=== PATIENT | male | born 1955 | race Caucasian/White ===

== ENCOUNTER → 2020-07-10 08:59 | Outpatient (BNVA) | payer MEDICARE, BC, SELFPAY | PROVIDERS: Visit Provider Urology | DX: Z13.89 Encounter for screening for other disorder (principal) | CPT/HCPCS: Q3014 ==

== ENCOUNTER → 2021-01-08 08:19 | Outpatient (BNVA) | payer MEDICARE, BC, SELFPAY | PROVIDERS: Visit Provider Urology | CPT/HCPCS: Q3014 ==

== ENCOUNTER → 2021-07-08 11:28 | Outpatient (BNVA) | payer MEDICARE, BC, SELFPAY | PROVIDERS: Visit Provider Urology | DX: R97.20 Elevated prostate specific antigen [PSA] (principal); N40.1 Benign prostatic hyperplasia with lower urinary tract symptoms; N13.8 Other obstructive and reflux uropathy; N52.9 Male erectile dysfunction, unspecified | CPT/HCPCS: 51798; 99212 ==

== ENCOUNTER → 2021-12-30 10:46 | Outpatient (BNVA) | payer MEDICARE, BC, SELFPAY | PROVIDERS: PCP Family Medicine; Visit Provider Urology | DX: N40.1 Benign prostatic hyperplasia with lower urinary tract symptoms (principal); N13.8 Other obstructive and reflux uropathy; N52.9 Male erectile dysfunction, unspecified; R97.20 Elevated prostate specific antigen [PSA] | CPT/HCPCS: 51798; 99212 ==

== ENCOUNTER → 2022-07-19 15:37 | Outpatient (BNVA) | payer MEDICARE, BC, SELFPAY | PROVIDERS: PCP Family Medicine; Visit Provider Urology | DX: N40.1 Benign prostatic hyperplasia with lower urinary tract symptoms (principal); N13.8 Other obstructive and reflux uropathy; N52.9 Male erectile dysfunction, unspecified; R97.20 Elevated prostate specific antigen [PSA]; E22.1 Hyperprolactinemia; Z79.899 Other long term (current) drug therapy | CPT/HCPCS: 51798; 99212 ==

== ENCOUNTER 2023-01-25 08:24 | Outpatient (AMB) | payer MEDICARE, SELFPAY ==
--- NOTE | 2023-01-25 08:30 | MHC.OFFVIS ---
Intake Intake Visit Reasons: 6m/PSA(set) Intake Note: Patient is present for Follow Up PSA/PVR Urology Med: Finasteride, Tadalafil, Tamsulosin Antibiotic Allergy: None Blood Thinner: None Pharmacy: [facility] PVR: 401 Allergies No Known Allergies Allergy (Verified 01/25/23 08:31) Medication List - Last Reconciled 01/25/23 by Rasta Comer MD allopurinol 300 mg PO DAILY amlodipine 5 mg PO DAILY amlodipine 10 mg PO DAILY azelastine intranasal betamethasone dipropionate 0.05% topical finasteride 5 mg PO DAILY 90 days fluticasone propionate 50 mcg/actuation 1 spray intranasal DAILY ketoconazole 2% appl topical lisinopril 5 mg PO DAILY losartan 50 mg PO DAILY omeprazole 20 mg PO DAILY tadalafil 5 mg PO DAILY 90 days tadalafil 20 mg PO ONCE PRN 30 days tamsulosin 0.4 mg PO BEDTIME 30 days triamcinolone acetonide 0.1% topical BID HPI HPI Comments History of Present Illness Details Ean Bartlett is a very pleasant male. He is a patient of Dr. Edge. He is seen for the following urologic conditions - lower urinary tract symptoms - elevated PSA - erectile dysfunction High PVR PSA low Discussed double voiding Has trouble with sleep Discussed potential CBD chocolate Continue good effect from Cialis for erections Prostate/Bladder: Here for follow-up evaluation Benign prostatic hyperplasia (BPH) was diagnosed years ago. The last follow-up was months ago. Current symptoms include incomplete emptying, urinary frequency, weak flow, nocturiax2. Severity of the symptoms that is mild. Recent labs included a PSA (prostate-specific antigen) - 07/05 6.4 20%, 01/02 6.2 F 15%, 01/03 8.3 16%, 02/04 4.9 07/03 2.6, 11/30 2.5 - finasteride, 07/30 5.5, 15%, Dec 2016 5.0 F 16%, Dec 2015 4.8 free 14%, July 2014 4.6, July 2013 4.1, November 2012 4.6, November 2011 2.9, November 2010 2.7, November 2009 2.5, October 2008 2.2, July 2007 3.3 Investigative studies included TRUS biopsy October 2007 negative, March 2013 negative., an 2013 prostate volume 67 cc, hypoechoic nodule 1.2 cm peripheral zone right apex. 11/01 MRI 100gm, no high risk lesions seen. follow 6m patient request. Erectile dysfunction: Continues to be effective Symptoms have been present for/since 2004 - During evaluation for a prolactinoma. Medications include(s) Cialis 20 mg which worked successfully. . Recent labs included a testosterone level - July 2014 636. The last follow-up was months ago. Current symptoms include trouble sustaining an erection, trouble getting an erection. Severity of the symptoms is severe. Frequency of symptoms is often PFSH Medical History Hyperprolactinemia Erectile dysfunction BPH (benign prostatic hyperplasia) Surgical History History of surgery Review of Systems Const Denies chills and Denies fever(s) Card Reports no additional complaints and Denies syncope Resp Denies cough GI Denies abdominal pain and Denies heartburn Reports as per HPI and Denies change in libido Neuro Denies syncope Psych Denies change in libido Endo Denies change in libido Physical Exam Const General: cooperative, healthy appearing, comfortable and no acute distress Orientation/consciousness: patient oriented x3 HEENT Face and sinus: Yes normal facial exam Mouth: moist mucous membranes Neck Neck: Yes normal visual inspection, Yes full ROM and Yes trachea midline Chest Chest palpation & inspection: normal inspection of the chest Resp Effort & Inspection: normal respiratory effort, able to speak in complete sentences and no respiratory distress GI Inspection: Yes normal to inspection Back/Spine/Pelvis Cervical Spine: normal cervical lordosis Thoracic/Lumbar Spine: thoracic and lumbar spine normal to inspection Skin General skin exam: no rashes or lesions noted Neuro General: patient oriented x3, gait normal, tone normal and moves all extremities Extrem General: Yes normal to inspection and Yes capillary refill normal Office Procedures Post Void Residual Post Residual Void Post Void Residual (PVR): [id number] Void Residual by ultrasound Results AMB Urinalysis, Automated UA Leukoctes 0 Justina/uL Last Edit by ESPINOZA Amador on 01/25/23 08:41 UA Nitrite Negative Last Edit by ESPINOZA Amador on 01/25/23 08:41 UA Urobilinogen 0.2 mg/dL Last Edit by Sabi Jiang, RMA on 01/25/23 08:41 UA Protein 0 mg/dL Last Edit by Sabi Jiang, RMA on 01/25/23 08:41 UA pH 6 Last Edit by Sabi Jiang, RMA on 01/25/23 08:41 UA Blood 0 Alonso/uL Last Edit by Sabi Jiang, RMA on 01/25/23 08:41 UA Specific [place] 1.020 Last Edit by Sabi Jiang, RMA on 01/25/23 08:41 UA Ketone Negative Last Edit by Sabi Jiang, RMA on 01/25/23 08:41 UA Bilirubin 0 mg/dL Last Edit by Sabi Jiang, RMA on 01/25/23 08:41 UA Glucose 0 mg/dL Last Edit by Sabi Tolbertro, RMA on 01/25/23 08:41 Assessment & Plan Assessment & Plan (1) Erectile dysfunction: Code(s): N52.9 - Male erectile dysfunction, unspecified (2) Elevated PSA: Code(s): R97.20 - Elevated prostate specific antigen [PSA] (3) BPH w urinary obs/LUTS: Code(s): N40.1 - Benign prostatic hyperplasia with lower urinary tract symptoms; N13.8 - Other obstructive and reflux uropathy Plan Six month follow-up PVR Orders: Orders AMB Post Void Residual by ultrasound Today N13.8 - Other obstructive and reflux uropathy, N40.1 - Benign prostatic hyperplasia with lower urinary tract symptoms AMB Urinalysis Automated Today Z13.9 - Encounter for screening, unspecified Medications: Refilled tadalafil 5 mg PO DAILY 90 tabs 1RF sexual activity 90 days N52.01 - Erectile dysfunction due to arterial insufficiency finasteride 5 mg PO DAILY 90 tabs 1RF 90 days N13.8 - Other obstructive and reflux uropathy, N40.1 - Benign prostatic hyperplasia with lower urinary tract symptoms, R33.9 - Retention of urine, unspecified tadalafil 20 mg PO ONCE PRN 30 tabs 0RF sexual activity 30 days N52.9 - Male erectile dysfunction, unspecified Patient Instructions: Imaging studies, laboratory and physical exam results were discussed and reviewed in detail. No major barriers to patient understanding were identified. An opportunity to ask questions regarding the treatment plan was provided. All questions were answered. The patient expressed understanding and agreement with the above treatment plan. The patient is aware they should contact our office by phone for worsening of their current condition or the appearance of new urologic symptoms. Compliance is encouraged with any medications and followup testing that is ordered. It is a privilege to participate in the urologic care of your patient. If you have any questions or concerns regarding treatment for the above conditions, or other urologic issues, please do not hesitate to contact me. The office telephone contact is [phone]. This note is constructed using voice recognition software. While every effort has been made to ensure accuracy intranet support errors may have been included. Yours sincerely, Dr Rasta Comer MD, [facility] - Urology Providers of Expert, Compassionate Care for the Genitourinary System Coding Level of Care Code Est Pt Level 4 (67351) Diagnoses Erectile dysfunction N52.9 Elevated PSA R97.20 BPH w urinary obs/LUTS N40.1; N13.8 CPT Codes Post Residual Void - PVR CPT Code: 14579-Hvqt Void Residual by ultrasound ([id number])
== END 2023-01-25 08:55 | disposition home or self-care (01) ==
PROVIDERS: PCP Family Medicine; Visit Provider Urology
DX: N52.9 Male erectile dysfunction, unspecified (principal); R97.20 Elevated prostate specific antigen [PSA]; N40.1 Benign prostatic hyperplasia with lower urinary tract symptoms; N13.8 Other obstructive and reflux uropathy; Z13.9 Encounter for screening, unspecified
CPT/HCPCS: 99213

== ENCOUNTER → 2023-01-25 08:24 | Outpatient (BNVA) | payer MEDICARE, BC, SELFPAY | PROVIDERS: Visit Provider Urology | DX: N40.1 Benign prostatic hyperplasia with lower urinary tract symptoms (principal); N13.8 Other obstructive and reflux uropathy; R97.20 Elevated prostate specific antigen [PSA]; N52.9 Male erectile dysfunction, unspecified | CPT/HCPCS: 51798; 81003; 99212 ==

== ENCOUNTER 2023-07-27 08:21 | Outpatient (AMB) | payer MEDICARE, SELFPAY ==
--- NOTE | 2023-07-27 08:22 | MHC.OFFVIS ---
Intake Intake Visit Reasons: 6M PVR/PSA(set) Intake Note: Patient presents today for a follow-up PVR/PSA Meds- Finasteride, Tadalafil Allergies to Antibiotic- No Known Allergies Blood Thinner- None Post Void Residual: >515ml Patient Symptoms: Patient stated having a little bit of discomfort in the bladder area, an urine sample was taken. [employer] Manager Required: No Accompanied by: Self / Same As Patient Allergies No Known Allergies Allergy (Verified 07/27/23 08:41) HPI HPI Comments History of Present Illness Details Ean Bartlett is a very pleasant male. He is a patient of Dr. Edge. He is seen for the following urologic conditions - lower urinary tract symptoms - elevated PSA - erectile dysfunction PSA has bumped back up on finasteride Last MRI 2019 High PVR 500 Recommend GreenLight laser prostate with prostate biopsy He has weddings to attend in October and November Tele visit late November Has trouble with sleep Discussed potential CBD chocolate Continue good effect from Cialis for erections Prostate/Bladder: Here for follow-up evaluation Benign prostatic hyperplasia (BPH) was diagnosed years ago. The last follow-up was months ago. Current symptoms include incomplete emptying, urinary frequency, weak flow, nocturiax2. Severity of the symptoms that is mild. Recent labs included a PSA (prostate-specific antigen) - 07/05 6.4 20%, 01/02 6.2 F 15%, 01/03 8.3 16%, 02/04 4.9, 06/07 7.6 - 07/03 2.6, 11/30 2.5 - finasteride, 07/30 5.5, 15%, Dec 2016 5.0 F 16%, Dec 2015 4.8 free 14%, July 2014 4.6, July 2013 4.1, - November 2012 4.6, November 2011 2.9, November 2010 2.7, November 2009 2.5, October 2008 2.2, July 2007 3.3 Investigative studies included TRUS biopsy October 2007 negative, March 2013 negative., an 2012 prostate volume 67 cc, hypoechoic nodule 1.2 cm peripheral zone right apex. 11/01 MRI 100gm, no high risk lesions seen. follow 6m patient request. Erectile dysfunction: Continues to be effective Symptoms have been present for/since 2004 - During evaluation for a prolactinoma. Medications include(s) Cialis 20 mg which worked successfully. . Recent labs included a testosterone level - July 2014 636. The last follow-up was months ago. Current symptoms include trouble sustaining an erection, trouble getting an erection. Severity of the symptoms is severe. Frequency of symptoms is often PFSH Medical History Hyperprolactinemia Erectile dysfunction BPH (benign prostatic hyperplasia) Surgical History History of surgery Review of Systems Const Denies chills and Denies fever(s) Card Reports no additional complaints and Denies syncope Resp Denies cough GI Denies abdominal pain and Denies heartburn Reports as per HPI and Denies change in libido Neuro Denies syncope Psych Denies change in libido Endo Denies change in libido Physical Exam Const General: cooperative, healthy appearing, comfortable and no acute distress Orientation/consciousness: patient oriented x3 HEENT Face and sinus: Yes normal facial exam Mouth: moist mucous membranes Neck Neck: Yes normal visual inspection, Yes full ROM and Yes trachea midline Chest Chest palpation & inspection: normal inspection of the chest Resp Effort & Inspection: normal respiratory effort, able to speak in complete sentences and no respiratory distress GI Inspection: Yes normal to inspection Back/Spine/Pelvis Cervical Spine: normal cervical lordosis Thoracic/Lumbar Spine: thoracic and lumbar spine normal to inspection Skin General skin exam: no rashes or lesions noted Neuro General: patient oriented x3, gait normal, tone normal and moves all extremities Extrem General: Yes normal to inspection and Yes capillary refill normal Office Procedures Post Void Residual Post Residual Void Post Void Residual (PVR): [id number] Void Residual by ultrasound Results AMB Urinalysis, Automated UA Leukoctes 0 Justina/uL Last Edit by Samira Booth CMA on 07/27/23 08:47 UA Nitrite Negative Last Edit by Samira Booth CMA on 07/27/23 08:47 UA Urobilinogen 3.5 mg/dL Last Edit by Samira Booth CMA on 07/27/23 08:47 UA Protein 0 mg/dL Last Edit by Samira Booth CMA on 07/27/23 08:47 UA pH 5.5 Last Edit by Samira Booth CMA on 07/27/23 08:47 UA Blood 0 Alonso/uL Last [facility] on 07/27/23 08:47 UA Specific [place] 1.015 Last Edit by Samira Boothkendra Booth [facility] on 07/27/23 08:47 UA Ketone Negative Last Edit by Samira Booth [facility] on 07/27/23 08:47 UA Bilirubin 0 mg/dL Last Edit by Samira Boothkendra Booth [facility] on 07/27/23 08:47 UA Glucose 0 mg/dL Last Edit by [facility] on 07/27/23 08:47 Results Reviewed Results Reviewed: Laboratory Last Values Urine pH (Auto) 5.5 07/27/23 08:45 Specific [place] (Auto) 1.015 07/27/23 08:45 Urine Protein (Auto) 0 mg/dL 07/27/23 08:45 Glucose (UA)(Auto) 0 mg/dL 07/27/23 08:45 Urine Ketones (Auto) Negative 07/27/23 08:45 Urine Blood (Auto) 0 Alonso/uL 07/27/23 08:45 Urine Nitrite (Auto) Negative 07/27/23 08:45 Urine Bilirubin (Auto) 0 mg/dL 07/27/23 08:45 Urine Urobilinogen (Auto) 3.5 mg/dL 07/27/23 08:45 Leukocyte Esterase (Auto) 0 Justina/uL 07/27/23 08:45 Assessment & Plan Assessment & Plan (1) BPH w urinary obs/LUTS: Code(s): N40.1 - Benign prostatic hyperplasia with lower urinary tract symptoms; N13.8 - Other obstructive and reflux uropathy (2) Nocturia more than twice per night: Code(s): R35.1 - Nocturia (3) Erectile dysfunction: Code(s): N52.9 - Male erectile dysfunction, unspecified Plan November tele visit Orders: Orders AMB Post Void Residual by ultrasound Today R33.9 - Retention of urine, unspecified AMB Urinalysis Automated Today R33.9 - Retention of urine, unspecified Medications: Refilled tadalafil 20 mg PO ONCE PRN 30 tabs 0RF sexual activity 30 days N52.9 - Male erectile dysfunction, unspecified tadalafil 5 mg PO DAILY 90 tabs 1RF sexual activity 90 days N52.01 - Erectile dysfunction due to arterial insufficiency Patient Instructions: Imaging studies, laboratory and physical exam results were discussed and reviewed in detail. No major barriers to patient understanding were identified. An opportunity to ask questions regarding the treatment plan was provided. All questions were answered. The patient expressed understanding and agreement with the above treatment plan. The patient is aware they should contact our office by phone for worsening of their current condition or the appearance of new urologic symptoms. Compliance is encouraged with any medications and followup testing that is ordered. It is a privilege to participate in the urologic care of your patient. If you have any questions or concerns regarding treatment for the above conditions, or other urologic issues, please do not hesitate to contact me. The office telephone contact is [phone]. This note is constructed using voice recognition software. While every effort has been made to ensure accuracy automatic i threading machine feeder errors may have been included. Yours sincerely, Dr Rasta Comer MD, [facility] - Urology Providers of Expert, Compassionate Care for the Genitourinary System Coding Level of Care Code Est Pt Level 4 (47778) Diagnoses BPH w urinary obs/LUTS N40.1; N13.8 Nocturia more than twice per night R35.1 Erectile dysfunction N52.9 CPT Codes Post Residual Void - PVR CPT Code: 93883-Jtpt Void Residual by ultrasound ([id number])
== END 2023-07-27 09:20 | disposition home or self-care (01) ==
PROVIDERS: PCP Family Medicine; Visit Provider Urology
DX: N40.1 Benign prostatic hyperplasia with lower urinary tract symptoms (principal); N13.8 Other obstructive and reflux uropathy; R35.1 Nocturia; N52.9 Male erectile dysfunction, unspecified; R33.9 Retention of urine, unspecified
CPT/HCPCS: 99214

== ENCOUNTER → 2023-07-27 08:21 | Outpatient (BNVA) | payer MEDICARE, SELFPAY | PROVIDERS: PCP Family Medicine; Visit Provider Urology | DX: N40.1 Benign prostatic hyperplasia with lower urinary tract symptoms (principal); R33.8 Other retention of urine; N13.8 Other obstructive and reflux uropathy; R35.1 Nocturia; N52.01 Erectile dysfunction due to arterial insufficiency | CPT/HCPCS: 51798; 81003; 99212 ==